=== PATIENT | male | born 1980 | race Caucasian/White ===

== ENCOUNTER 2021-01-19 13:40 | Day surgery (SDC) | payer OTHER ==
[~2021-01-19] VITALS: Ht 170.2 cm; Wt 72.0 kg
[~2021-01-19 13:40] MED LIST: NO HOME MEDS; cefazolin/dext.iso 2gm/50ml 50 ML IV ONE; famotidine 20mg tablet PO ONE; ringers solution, lacted 1,000 ML IV SCH
[2021-01-19 14:24] VITALS: BP 120/80
[2021-01-19 14:28] LABS: BASOPHILS # (AUTO) 0.1 X10'3 (0-0.2); BASOPHILS % (AUTO) 0.9 % (0-1); EOSINOPHILS # (AUTO) 0.2 X10'3 (0-0.9); EOSINOPHILS % (AUTO) 2.8 % (0-6); LYMPHOCYTES # (AUTO) 2.2 X10'3 (1.1-4.8); LYMPHOCYTES % (AUTO) 33.1 % (21-51); MEAN CORPUSCULAR HEMOGLOBIN 26.9 PG (27.0-31.0); MEAN CORPUSCULAR HGB CONC 33.6 g/dL (33.0-36.5); MEAN PLATELET VOLUME 7.6 FL (7.4-10.4); MONOCYTES # (AUTO) 0.5 X10'3 (0-0.9); MONOCYTES % (AUTO) 8.1 % (2-12); NEUTROPHILS # (AUTO) 3.7 X10'3 (1.8-7.7); NEUTROPHILS % (AUTO) 55.1 % (42-75); PRE OP HEMATOCRIT 40.3 % (42.0-52.0); PRE OP HEMOGLOBIN 13.5 g/dL (14.0-17.9); PRE OP PLATELET COUNT 274 X10'3 (140-440); RED BLOOD COUNT 5.04 X10'6 (4.70-6.10); RED CELL DISTRIBUTION WIDTH 14.3 % (11.5-14.5)
[2021-01-19] MEDS ORDERED: BUPIVAcaine/PF 2.5 mg/ml (0.25%) 30ml vial ONE (14:28)
[2021-01-19 14:41] LABS: ALBUMIN 3.8 G/DL (3.4-5.0); ALBUMIN/GLOBULIN RATIO 0.9 (1.1-1.5); ALKALINE PHOSPHATASE 89 IU/L (46-116); BLOOD UREA NITROGEN 14 MG/DL (7-18); BUN/CREATININE RATIO 16.9 (5.4-32.0); CHLORIDE 104 MMOL/L (99-107); CREATININE 0.83 MG/DL (0.60-1.10); PRE OP ANION GAP 11 (8-16); PRE OP AST 31 U/L (10-37); PRE OP BILIRUB, TOTAL 0.6 MG/DL (0.0-1.0); PRE OP GLUCOSE 95 MG/DL (70-104); PRE OP POTASSIUM 3.4 MMOL/L (3.4-5.1); PRE OP SODIUM 141 MMOL/L (135-145); TOTAL CARBON DIOXIDE 26.4 MMOL/L (24-32); TOTAL PROTEIN 8.2 G/DL (6.4-8.2); eGFR > 90 ML/MIN
[2021-01-19 14:47] LABS: PRE OP ALT 118 U/L (30-65)
[2021-01-19] MEDS ORDERED: fentaNYL/PF 50MCG/1 ML 2ML syringe ONE (16:56)
[2021-01-19] MEDS ORDERED: propofol inj 20 ML IV ONE (16:57)
[2021-01-19] MEDS ORDERED: midazolam 1 mg/ML 2ml injection ONE (16:57)
[2021-01-19] MEDS ORDERED: morphine 2 MG/ML inj. syringe IV PRN (18:15)
[2021-01-19] MEDS ORDERED: ringers solution, lacted 1,000 ML IV SCH (18:15)
[2021-01-19] MEDS ORDERED: morphine 4 MG/ML inj SYRINge IV PRN (18:15)
[2021-01-19] MEDS ORDERED: meperidine/PF 25mg/ml syringe IV PRN ×3 (18:15)
[2021-01-19] MEDS ORDERED: proCHLORperazine 10 MG/2 ml inj IV PRN (18:15)
[2021-01-19] MEDS ORDERED: ondansetron/PF 4mg/2ml inj IV PRN (18:15)
[2021-01-19] MEDS ORDERED: ROPIVAcaine 0.5% (5mg/ml) 30ml vial ONE (18:19)
[2021-01-19 18:39] VITALS: BP 126/81
--- NOTE | 2021-01-19 18:39 | NUR ---
Received from OR via [facility] , accompanied by Anesthesiologist KYARA and report given by Anesthesiolgist. PATIENT WITH 18G PIV IN LEFT UE RUNNING LR AT 100. ALL TOES TO RIGHT FOOT ARE PWD AND PATIENT HAS + CAP REFILL. PATIENT WITH ELIA BANDAGE TO RIGHT FOOT. VSS. Addendum: 01/19/21 at 1843 by Antelmo Oro RN, RN Amended: Links added.
[2021-01-19 18:50] VITALS: BP 122/82
[2021-01-19 19:00] VITALS: BP 135/92
[2021-01-19] MEDS ORDERED: acetaminophen w/codeine (30MG) #3 tablet PO ONE (19:05)
[2021-01-19 19:10] VITALS: BP 134/89
--- NOTE | 2021-01-19 19:19 | NUR ---
ALL DC PAPERWORK WITH GAURDS. LEACH. MEDICATED ORALLY WITH T3 PRIOR TO DC. PATIENT INSTRUCTED AND REPEATED INSTRUCTIONS ON GAIT AND ELEVATION OF FOOT ABOVE HEART FOR PAIN RELIEF. OUT VIA WHEELCHAIR TO GUARDS VEHICLE. IV OUT WITHOUT INCIDENT. Addendum: 01/19/21 at 1924 by Antelmo Oro RN, RN Amended: Links added.
== END 2021-01-19 19:19 ==
LOC: PAS 13:40 → EEVIPCON 16:30 → PAS 19:19
PROVIDERS: ATTEND Orthopaedic Surgery
DX: S92.351A Displaced fracture of fifth metatarsal bone, right foot, initial encounter for closed fracture (principal); Z20.822 Contact with and (suspected) exposure to COVID-19; X58.XXXA Exposure to other specified factors, initial encounter; Y93.89 Activity, other specified; Y92.89 Other specified places as the place of occurrence of the external cause; Y99.8 Other external cause status
CPT/HCPCS: 28485; 36415; 80053; 85025; 87635; A6222; C1713; C9803; J2250; J2704; J3010; J3490; Z7506; Z7508; Z7512; A4618; A6449; A7000; J2795; J7120